=== PATIENT | male | born 1980 | race Caucasian/White ===

== ENCOUNTER 2022-04-22 11:37 | Emergency (ER) | payer SELFPAY ==
[~2022-04-22] VITALS: Ht 180.3 cm; Wt 77.0 kg
[2022-04-22 11:39] VITALS: BP 152/87
[2022-04-22] MEDS ORDERED: AMOXICILLIN/POTASSIUM CLAVULANATE 875/125MG TAB PO ONE (12:00)
[2022-04-22] MEDS ORDERED: TETANUS, DIPHTHERIA, PERTUSSIS VAC/PF 0.5ML (>10YR OLD) IM ONE (12:00)
[2022-04-22] MEDS ORDERED: AMOX1TAB16 MT (12:17)
== END 2022-04-22 12:33 | disposition home or self-care (01) ==
LOC: ER 12:27
DX: S00.81XA Abrasion of other part of head, initial encounter (principal); W50.3XXA Accidental bite by another person, initial encounter; Y93.89 Activity, other specified; Y92.89 Other specified places as the place of occurrence of the external cause; Y99.8 Other external cause status
CPT/HCPCS: 90471; 90715; 99283